=== PATIENT | female | born 1950 | race Caucasian/White ===

== ENCOUNTER 2016-07-14 15:38 | Observation (INO) | payer OTHER ==
[~2016-07-14] VITALS: Ht 170.2 cm; Wt 84.0 kg
[~2016-07-14 15:38] MED LIST: AMBIEN5 MG PO; ASA LO-DOSE81 MG OR; ASPIRIN LOW DOS81 M2 PO; ATENOLOL50 MG OR; AUGMENTIN875 MG OR; BABY ASPIRIN81 MG OR; CYANOCOBALAM1000 MC1 IM; FLEXERIL OR; FLEXERIL PO; LIPITOR10 MG PO; LORTAB 10 OR; LORTAB 5 OR; LORTAB 7.5 OR; LOSARTAN POT50 MG PO; METOPROL TAR25 MG PO; NAPROSYN500 MG PO; PLAVIX75 MG OR; PREVACID30 M1 OR; PREVACID30 M1 PO; PREVACID30 M3 PO; PREVACID30 MG OR; PRILOSEC20 MG OR; ROBAXIN-750750 MG PO; ULTRAM50 M1 PO; VITAMIN B-121000 MCG PO
--- NOTE | 2016-07-14 15:40 | NUR ---
PT TO ROOM 9 VIA WHEELCHAIR. CALL LIGHT WITHIN REACH.
--- NOTE | 2016-07-14 15:57 | NUR ---
PT TO ED 9 VIA WC. PT CARMITA. RESPR EG ET TACHEPNIC. PT REPORTS CP X 1 HOUR. JUST PRIOR TO ARRIVAL PT BEGAN TO VOMIT. SR ON MONITOR. ED COURSE OF TX DISCUSSED W/ PT, PT VERBALIZES UNDERSTANDING
[2016-07-14] MEDS ORDERED: PREVACID30 M1 PO (16:03)
[2016-07-14] MEDS ORDERED: AMLODIPINE5 MG PO (16:03)
[2016-07-14] MEDS ORDERED: K-DUR/KLOR-CON20 MEQ PO (16:04)
[2016-07-14] MEDS ORDERED: LOSARTAN POTASS50 MG PO (16:04)
[2016-07-14 16:05] LABS: HEMATOCRIT 38.9 % (37.0-47.0); HEMOGLOBIN 13.3 g/dl (12.0-16.0); IMMATURE GRANULOCYTES 0.4 % (0.0-1.0); MEAN CELL VOLUME 85.9 fL CALC (80.0-100.0); MEAN CORPUSCULAR HGB 29.4 pG CALC (26.0-32.0); MEAN CORPUSCULAR HGB CONC 34.2 g/L CALC (32.0-36.0); NEUT# 7.47 thou/uL (2.00-7.15); RED BLOOD COUNT 4.53 mill/uL (4.20-5.60); RED CELL DISTRI WIDTH 13.8 % (11.5-15.5)
[2016-07-14] MEDS ORDERED: ISOSORB MONO30 MG PO (16:05)
[2016-07-14] MEDS ORDERED: HYDROCHLOROT25 MG PO (16:05)
[2016-07-14] MEDS ORDERED: ASPIRIN81 MG PO (16:06)
[2016-07-14 16:26] LABS: ALBUMIN 4.6 g/dL (3.2-5.0); ALKALINE PHOSPHATASE 190 u/l (38-126); AMYLASE 33 u/l (30-110); ANION GAP 17 (6-22 (CALC)); BILIRUBIN, TOTAL 1.4 mg/dL (0.0-1.4); BUN 10 mg/dL (8-23); BUN/CREATININE RATIO 18 (12-20 (CALC)); CALCIUM 9.9 mg/dL (8.4-10.2); CARBON DIOXIDE 25 mmol/l (22-30); CHLORIDE 105 mmol/l (95-108); CREATININE 0.6 mg/dL (0.5-1.0); GFR > 60 ML/MIN (>=60 (CALC)); GFR FOR AFR.AMER. > 60 ML/MIN (>=60 (CALC)); GLUCOSE 103 mg/dL (82-115); LIPASE 79 u/l (23-300); SGOT/AST 26 u/l (9-36); SGPT/ALT 27 u/l (11-66); SODIUM 144 mmol/l (137-146); TOTAL PROTEIN 7.6 g/dL (6.3-8.2)
--- NOTE | 2016-07-14 16:54 | NUR ---
PT RESTING ON STRETCHER. PT CARMITA RESP REG ET UNLABORED. VS PER YVONNE SHEET. PLAN OF CARE ET WAIT TIME UPDATED , PT VERBALIZES UNDERSTANDING. PT REPORTS HER PAIN ET NAUUSEA IS REDUCED AND WILL MONITOR. CALL LIGHT W/IN ANGELITA. NO FURTHER CONCERNS AT THIS TIME
--- NOTE | 2016-07-14 18:19 | NUR ---
PT GIVEN MEAL TRAY. PT AWAITING TGRANSPORT TO MED SURG
--- NOTE | 2016-07-14 18:53 | NUR ---
PT RESTING ON STRETCHER. PT CARMITA. RESP REG ET UNLABORED. VS PER YVONNE SHEET SR ON MONITOR. AWAITING PLACEMENT ON MED SURG. PT TAKES PO DINNER TRAY W/O DIFF.
--- NOTE | 2016-07-14 19:00 | NUR ---
PT REPORT TO PETER
--- NOTE | 2016-07-14 19:23 | NUR ---
PT TGRANSPORTED TO MSD VIA STGRETCHER W/ RN. PT CARMITA. RESP REG ET UN LBORED/. VS PER YVONNE SHEET. NO FURTHER CONCERNS AT THIS TIME
[2016-07-14 19:25] VITALS: BP 160/86
--- NOTE | 2016-07-14 19:30 | NUR ---
PT RECEIVED FROM ER VIA HERIBERTOCHER ACCOMPANIED BY NURSE, AMBULATING TO STANDING SCALE THEN TO BED WITH STEADY GAIT. A/O X3, RESPIRATIONS EVEN AND UNLABORED, DENIES CHEST PAIN. TELE IN PLACE. WILL CONTINUE TO MONITOR. ORIENTED TO BED CONTROLS AND CALL LIGHT FOR ASSISTANCE.
--- NOTE | 2016-07-14 23:30 | NUR ---
PT ADMITS TO HAVING A LOOSE BM AND NOW C/O NAUSEA AND LUQ DISCOMFORT. MEDICATED WITH ZOFRAN AND MYLANTA AT [address] MARCANO.
[2016-07-15 00:04] VITALS: BP 139/58
--- NOTE | 2016-07-15 01:39 | NUR ---
RESTING WITH EYES CLOSED, RESPIRATIONS EVEN AND UNLABORED.
[2016-07-15 04:20] VITALS: BP 116/65
--- NOTE | 2016-07-15 05:00 | NUR ---
RESTING IN SEMIFOWLERS WITH EYES CLOSED, RESPIRATIONS EVEN AND UNLABORED. CALL LIGHT IN REACH.
--- NOTE | 2016-07-15 06:00 | NUR ---
MORNING BLOOD WORK DRAWN BY INSURANCE CLAIM AUDITOR.
[2016-07-15 06:14] LABS: HEMATOCRIT 37.5 % (37.0-47.0); HEMOGLOBIN 12.5 g/dl (12.0-16.0); IMMATURE GRANULOCYTES 0.2 % (0.0-1.0); MEAN CELL VOLUME 89.3 fL CALC (80.0-100.0); MEAN CORPUSCULAR HGB 29.8 pG CALC (26.0-32.0); MEAN CORPUSCULAR HGB CONC 33.3 g/L CALC (32.0-36.0); NEUT# 3.71 thou/uL (2.00-7.15); RED BLOOD COUNT 4.2 mill/uL (4.20-5.60); RED CELL DISTRI WIDTH 14.3 % (11.5-15.5)
[2016-07-15 06:29] LABS: ANION GAP 14 (6-22 (CALC)); BUN 12 mg/dL (8-23); BUN/CREATININE RATIO 18 (12-20 (CALC)); CALCIUM 9.5 mg/dL (8.4-10.2); CALCULATED LDLCHOLESTEROL 61 mg/dL (62-129 (CALC)); CARBON DIOXIDE 29 mmol/l (22-30); CHLORIDE 106 mmol/l (95-108); CREATININE 0.7 mg/dL (0.5-1.0); GFR > 60 ML/MIN (>=60 (CALC)); GFR FOR AFR.AMER. > 60 ML/MIN (>=60 (CALC)); GLUCOSE 105 mg/dL (82-115); HDL CHOLESTEROL 44 mg/dL (>=40); MAGNESIUM 2.2 mg/dL (1.6-2.3); POTASSIUM 3.5 mmol/l (3.5-5.1); SODIUM 145 mmol/l (137-146); TOTAL CHOLESTEROL 133 mg/dl (0-199); TOTAL TRIGLYCERIDES 144 mg/dl (30-149); VLDL CHOLESTROL 29 mg/dl (1-41 (CALC))
--- NOTE | 2016-07-15 07:10 | NUR ---
PT AROUSED EASILY ON ROUNDS; NO COMPLAINTS AT THIS TIME; CALL MARTINEZ WITHIN REACH; WILL CONTINUE TO MONITOR.
[2016-07-15 08:45] VITALS: BP 124/77
--- NOTE | 2016-07-15 08:45 | NUR ---
PT A/O X3; MEDICATED FOR C/O NAUSEA; PT WITH C/O LUQ PAIN 05/03, WILL NOTIFY MD; TELE MONITOR IN PLACE; CALL MARTINEZ WITHIN REACH; WILL CONTINUE TO MONITOR
--- NOTE | 2016-07-15 10:30 | NUR ---
DR. MARCANO IN TO SEE PT; PLAN OF CARE DISCUSSED
[2016-07-15 12:52] VITALS: BP 124/66
[2016-07-15 13:48] LABS: C. DIFFICILE TOXIN A&B NEGATIVE (NEGATIVE)
[2016-07-15] MEDS ORDERED: FLORASTOR250 M1 PO (14:18)
[2016-07-15] MEDS ORDERED: TRAMADOL HCL50 MG PO (14:18)
[2016-07-15] MEDS ORDERED: SUCRALFATE1 GM/10 ML PO (14:18)
[2016-07-15] MEDS ORDERED: METRONIDAZOLE500 MG PO (14:18)
[2016-07-15] MEDS ORDERED: B-12500 MC1 PO (14:21)
--- NOTE | 2016-07-15 15:37 | NUR ---
Discharge instructions given. Patient verbalizes understanding of same. Discharged in stable condition via Wheelchair to Home with *Other. All belongings sent with pt.
== END 2016-07-15 15:35 | disposition home or self-care (01) | DRG 313 ==
LOC: ENPENDDIS → ED 15:38 → ED-I 16:12 → ED 16:12 → ED-I 17:08 → ED 17:44 → MS2 17:45
PROVIDERS: Emergency Medicine; ADMIT Internal Medicine; ATTEND Internal Medicine
DX: R07.89 Other chest pain (principal); I25.10 Atherosclerotic heart disease of native coronary artery without angina pectoris; R16.0 Hepatomegaly, not elsewhere classified; I10 Essential (primary) hypertension; R10.12 Left upper quadrant pain; K21.9 Gastro-esophageal reflux disease without esophagitis; M19.90 Unspecified osteoarthritis, unspecified site; E78.5 Hyperlipidemia, unspecified; E53.8 Deficiency of other specified B group vitamins; K52.9 Noninfective gastroenteritis and colitis, unspecified; R42 Dizziness and giddiness; R06.02 Shortness of breath; Z98.84 Bariatric surgery status; Z95.5 Presence of coronary angioplasty implant and graft
CPT/HCPCS: G0378

== ENCOUNTER 2016-12-17 15:43 | Emergency (ER) | payer OTHER ==
[~2016-12-17] VITALS: Ht 170.2 cm; Wt 87.0 kg
[~2016-12-17 15:43] MED LIST changes: +AMLODIPINE5 MG PO; +ASPIRIN81 MG PO; +B-12500 MC1 PO; +FLORASTOR250 M1 PO; +HYDROCHLOROT25 MG PO; +ISOSORB MONO30 MG PO; +K-DUR/KLOR-CON20 MEQ PO; +LOSARTAN POTASS50 MG PO; +METRONIDAZOLE500 MG PO; +SUCRALFATE1 GM/10 ML PO; +TRAMADOL HCL50 MG PO
[2016-12-17] MEDS ORDERED: FLEXERIL PO (18:10)
[2016-12-17] MEDS ORDERED: NAPROSYN500 MG PO (18:10)
[2016-12-17 18:13] VITALS: BP 158/84
== END 2016-12-17 18:21 | disposition home or self-care (01) | DRG 556 ==
LOC: ED 15:43
DX: M25.551 Pain in right hip (principal); R10.2 Pelvic and perineal pain; M16.11 Unilateral primary osteoarthritis, right hip; R10.31 Right lower quadrant pain; M54.5 Low back pain; R07.9 Chest pain, unspecified; V43.62XA Car passenger injured in collision with other type car in traffic accident, initial encounter; Y92.414 Local residential or business street as the place of occurrence of the external cause

== ENCOUNTER 2018-08-14 12:10 | Observation (INO) | payer OTHER, MEDICARE ==
[~2018-08-14] VITALS: Ht 170.2 cm; Wt 77.0 kg
[2018-08-14] MEDS ORDERED: METHIMAZOLE10 MG PO (12:26)
[2018-08-14] MEDS ORDERED: NORCO1 TA1 PO (12:27)
[2018-08-14 12:54] LABS: HEMATOCRIT 39.7 % (37.0-47.0); HEMOGLOBIN 12.9 g/dl (12.0-16.0); IMMATURE GRANULOCYTES 0.4 % (0.0-5.0); MEAN CELL VOLUME 86.1 fL CALC (80.0-100.0); MEAN CORPUSCULAR HGB CONC 32.5 g/L CALC (32.0-36.0); NEUT# 4.67 thou/uL (2.00-7.15); RED BLOOD COUNT 4.61 mill/uL (4.20-5.60); RED CELL DISTRI WIDTH 15.2 % (11.5-15.5)
[2018-08-14 13:11] LABS: ALBUMIN 4.5 g/dL (3.2-5.0); ALKALINE PHOSPHATASE 199 u/l (38-126); ANION GAP 14 (6-22 (CALC)); BUN 17 mg/dL (8-23); BUN/CREATININE RATIO 22 (12-20 (CALC)); CARBON DIOXIDE 25 mmol/l (22-30); CHLORIDE 107 mmol/l (95-108); CREATININE 0.8 mg/dL (0.5-1.0); GFR > 60 ML/MIN (>=60 (CALC)); GFR FOR AFR.AMER. > 60 ML/MIN (>=60 (CALC)); POTASSIUM 3.2 mmol/l (3.5-5.1); SGOT/AST 33 u/l (9-36); SODIUM 143 mmol/l (137-146); TOTAL PROTEIN 7.6 g/dL (6.3-8.2)
[2018-08-14 13:21] LABS: MYOGLOBIN 53 ng/mL (0 - 62)
[2018-08-14 14:34] VITALS: BP 156/84
[2018-08-14 15:52] LABS: URINE BLOOD DIPSTICK NEGATIVE (NEGATIVE); URINE GLUCOSE - DIPSTICK NEGATIVE (NEGATIVE); URINE KETONE TRACE mg/dL (NEGATIVE); URINE LEUK ESTERASE NEGATIVE (NEGATIVE); URINE NITRITE - DIPSTICK NEGATIVE (Negative); URINE PROTEIN - DIPSTICK TRACE mg/dL (NEG-TRACE); URINE SPECIFIC GRAVITY >=1.030; URINE UROBILINOGEN - DIPSTICK 0.2 E.U./dL (0.2)
[2018-08-14 15:53] LABS: URINE BILIRUBIN - DIPSTICK SMALL (NEGATIVE)
[2018-08-14 15:54] LABS: URINE COLOR DK. YELLOW
[2018-08-14 16:37] LABS: TSH, 3RD GENERATION 0.78 uIU/mL (0.47 - 4.68)
[2018-08-14 19:47] VITALS: BP 114/73
[2018-08-15] VITALS (19 sets, daily range): BP systolic 105–152; BP diastolic 62–89
[2018-08-15 05:43] LABS: HEMATOCRIT 36.5 % (37.0-47.0); HEMOGLOBIN 11.6 g/dl (12.0-16.0); IMMATURE GRANULOCYTES 0.3 % (0.0-5.0); MEAN CELL VOLUME 88.4 fL CALC (80.0-100.0); MEAN CORPUSCULAR HGB 28.1 pG CALC (26.0-32.0); MEAN CORPUSCULAR HGB CONC 31.8 g/L CALC (32.0-36.0); NEUT# 3.21 thou/uL (2.00-7.15); RED BLOOD COUNT 4.13 mill/uL (4.20-5.60); RED CELL DISTRI WIDTH 15.7 % (11.5-15.5)
[2018-08-15 05:56] LABS: ALBUMIN 3.8 g/dL (3.2-5.0); ALKALINE PHOSPHATASE 166 u/l (38-126); ANION GAP 11 (6-22 (CALC)); BILIRUBIN, TOTAL 0.6 mg/dL (0.0-1.4); BUN 19 mg/dL (8-23); BUN/CREATININE RATIO 31 (12-20 (CALC)); CARBON DIOXIDE 30 mmol/l (22-30); CHLORIDE 104 mmol/l (95-108); CREATININE 0.6 mg/dL (0.5-1.0); GFR > 60 ML/MIN (>=60 (CALC)); GFR FOR AFR.AMER. > 60 ML/MIN (>=60 (CALC)); MAGNESIUM 2.1 mg/dL (1.6-2.3); POTASSIUM 3.5 mmol/l (3.5-5.1); SGOT/AST 19 u/l (9-36); SODIUM 142 mmol/l (137-146); TOTAL PROTEIN 6.5 g/dL (6.3-8.2)
[2018-08-15 10:13] LABS: CHOLESTEROL HDL RATIO 3.5 (<4.4 (CALC))
[2018-08-16] VITALS (15 sets, daily range): BP systolic 104–163; BP diastolic 55–88
[2018-08-16 04:55] LABS: HEMATOCRIT 33.6 % (37.0-47.0); HEMOGLOBIN 10.8 g/dl (12.0-16.0); IMMATURE GRANULOCYTES 0.3 % (0.0-5.0); MEAN CELL VOLUME 88.9 fL CALC (80.0-100.0); MEAN CORPUSCULAR HGB 28.6 pG CALC (26.0-32.0); MEAN CORPUSCULAR HGB CONC 32.1 g/L CALC (32.0-36.0); NEUT# 3.32 thou/uL (2.00-7.15); RED BLOOD COUNT 3.78 mill/uL (4.20-5.60); RED CELL DISTRI WIDTH 15.7 % (11.5-15.5)
[2018-08-16 04:57] LABS: ANION GAP 11 (6-22 (CALC)); BUN 16 mg/dL (8-23); BUN/CREATININE RATIO 24 (12-20 (CALC)); CARBON DIOXIDE 25 mmol/l (22-30); CHLORIDE 108 mmol/l (95-108); CREATININE 0.7 mg/dL (0.5-1.0); GFR > 60 ML/MIN (>=60 (CALC)); GFR FOR AFR.AMER. > 60 ML/MIN (>=60 (CALC)); MAGNESIUM 2.1 mg/dL (1.6-2.3); POTASSIUM 3.6 mmol/l (3.5-5.1); SODIUM 140 mmol/l (137-146)
[2018-08-17] VITALS (16 sets, daily range): BP systolic 115–185; BP diastolic 67–95
[2018-08-17 05:13] LABS: HEMATOCRIT 34.4 % (37.0-47.0); IMMATURE GRANULOCYTES 0.2 % (0.0-5.0); MEAN CELL VOLUME 88.9 fL CALC (80.0-100.0); MEAN CORPUSCULAR HGB 28.4 pG CALC (26.0-32.0); NEUT# 2.21 thou/uL (2.00-7.15); RED BLOOD COUNT 3.87 mill/uL (4.20-5.60); RED CELL DISTRI WIDTH 15.8 % (11.5-15.5)
[2018-08-17 05:18] LABS: ANION GAP 9 (6-22 (CALC)); BUN 15 mg/dL (8-23); BUN/CREATININE RATIO 25 (12-20 (CALC)); CARBON DIOXIDE 28 mmol/l (22-30); CHLORIDE 108 mmol/l (95-108); CREATININE 0.6 mg/dL (0.5-1.0); GFR > 60 ML/MIN (>=60 (CALC)); GFR FOR AFR.AMER. > 60 ML/MIN (>=60 (CALC)); POTASSIUM 3.8 mmol/l (3.5-5.1); SODIUM 141 mmol/l (137-146)
== END 2018-08-17 16:10 | disposition home or self-care (01) | DRG 310 ==
LOC: ED 12:10 → ED-I 13:37 → ED 13:42 → MS2 13:43 → ICU 13:43
PROVIDERS: Emergency Medicine; Nurse Practitioner Family; ADMIT Internal Medicine Nephrology; ATTEND Internal Medicine Nephrology
DX: I49.5 Sick sinus syndrome (principal); I16.0 Hypertensive urgency; I10 Essential (primary) hypertension; I25.119 Atherosclerotic heart disease of native coronary artery with unspecified angina pectoris; E87.6 Hypokalemia; E05.90 Thyrotoxicosis, unspecified without thyrotoxic crisis or storm; E78.5 Hyperlipidemia, unspecified; M19.90 Unspecified osteoarthritis, unspecified site; K21.9 Gastro-esophageal reflux disease without esophagitis; R51 Headache; Z95.5 Presence of coronary angioplasty implant and graft; Z98.84 Bariatric surgery status
CPT/HCPCS: G0378; J1650; J3475; Q9967

== ENCOUNTER 2019-01-14 11:07 | Observation (INO) | payer OTHER, MEDICARE ==
[~2019-01-14] VITALS: Ht 170.2 cm; Wt 76.2 kg
[~2019-01-14 11:07] MED LIST changes: +METHIMAZOLE10 MG PO; +NORCO1 TA1 PO
--- NOTE | 2019-01-14 11:37 | NUR ---
PT STATES SHE WAS AT WORK WHEN SHE STARTED FEELING DIZZY AND FELT LIKE HER HEART WAS FLUTTERING, HAD DIARRHEA AND FELT NAUSEATED. SAT DOWN FOR A LITTLE BIT AND BEGAN TO FEEL BETTER, WENT HOME AND THE MORNING WENT OUT STILL HAD THE FEELING OF HEART FLUTTERING, CHECKED HER PULSE AND IT WAS IN THE 100'S. PT HAS HAD HX OF AFIB FOR A COUPLE OF YEARS. WAS GOING TO HAVE AN ABLATION BUT IT WAS TOO EXPENSIVE.
[2019-01-14 11:58] LABS: HEMATOCRIT 39.3 % (37.0-47.0); HEMOGLOBIN 12.6 g/dl (12.0-16.0); IMMATURE GRANULOCYTES 0.3 % (0.0-5.0); MEAN CELL VOLUME 85.2 fL CALC (80.0-100.0); MEAN CORPUSCULAR HGB 27.3 pG CALC (26.0-32.0); MEAN CORPUSCULAR HGB CONC 32.1 g/L CALC (32.0-36.0); NEUT# 7.64 thou/uL (2.00-7.15); RED BLOOD COUNT 4.61 mill/uL (4.20-5.60); RED CELL DISTRI WIDTH 14.9 % (11.5-15.5)
[2019-01-14 12:17] LABS: ANION GAP 18 (6-22 (CALC)); BUN 19 mg/dL (8-23); BUN/CREATININE RATIO 22 (12-20 (CALC)); CARBON DIOXIDE 21 mmol/l (22-30); CHLORIDE 102 mmol/l (95-108); CREATININE 0.8 mg/dL (0.5-1.0); GFR > 60 ML/MIN (>=60 (CALC)); GFR FOR AFR.AMER. > 60 ML/MIN (>=60 (CALC)); POTASSIUM 4.2 mmol/l (3.5-5.1); SODIUM 137 mmol/l (137-146)
--- NOTE | 2019-01-14 12:30 | NUR ---
PT STATES FEELS BETTER, RESTING QUIETLY WATCHING TV. VSS.
[2019-01-14] MEDS ORDERED: NORVASC PO ×2 (13:26→13:28)
[2019-01-14] MEDS ORDERED: FLEXERIL5 M1 PO (13:27)
[2019-01-14] MEDS ORDERED: LOPRESSOR 550 MG/TAB PO (13:27)
--- NOTE | 2019-01-14 13:33 | NUR ---
PT RESTING QUIETLY ON STRETCHER, ADVISED OF ADMISSION STATUS, AND PT VOICES UNDERSTANDING
--- NOTE | 2019-01-14 14:30 | NUR ---
TRIED CALLING REPORT TO MED SURG FOR CONTINUATION OF CARE. NURSE UNAVAILABLE AT THIS TIME
--- NOTE | 2019-01-14 14:50 | NUR ---
1450 PT PT REPORT GIVEN AND TAKEN TO FLOOR PER W/C AND TELEMENTRY
[2019-01-14 15:23] VITALS: BP 159/95
--- NOTE | 2019-01-14 15:57 | NUR ---
PT HAD COME FROM ER VIA WHEELCHAIR. PT AMBULATED TO SCALE AND THEN TO BED. ASSESSMENT DONE. TELE IN PLACE. PT IS A&O X3. PT DENIES PAIN IN CHEST AND STATED IT IS JUST PRESSURE. PT DENIES PAIN MEDICATION AT THIS TIME. RESPS EVEN AND UNLABORED. SAFETY PRECAUTIONS REINFORCED AND CALL LIGHT IN REACH.
[2019-01-14 18:58] VITALS: BP 146/89
--- NOTE | 2019-01-14 19:00 | NUR ---
REPORT FROM LEXY ROBB. PT NOTED RESTING IN BED WATCHING TV. NO APPARENT DISTRESS NOTED. IV SITE APPEARS HEALTHY. BILL DISTRIBUTOR IN PLACE. PT C/O MILD CHEST PRESSURE UNCHANGED FROM ADMISSION. OFFERED PRN APAP AT THIS TIME PT REFUSED. DISCUSSED POC. PT VERBALIZED UNDERSTANDING. CALL LIGHT WITHIN REACH. WILL CONTINUE TO MONITOR.
--- NOTE | 2019-01-14 21:13 | NUR ---
CADDY PACKER PHYSICIAN NOTFIED OF CRITICAL TROP. ORDERS RECEIVED TO OBTAIN STAT EKG AT THIS TIME. PT CONTINUED TO REPORT CP AT THIS TIME. WILL NOTIFY PHYSICIAN WITH EKG RESULTS FOR POSSIBLE TRANSFER IF CHANGES NOTED.
--- NOTE | 2019-01-14 21:35 | NUR ---
EKG RESULTS CALLED TO PLANT SAFETY ENGINEER PHYSICIAN. PHYSICIAN GAVE NEW ORDERS FOR REPEAT EKG IN MORNING OR IF CP WORSENS, SUBLINGUAL NITRO, AND TO NOTIFY WITH NEXT TROP AT MIDNIGHT. MADE PT AWARE OF NEW ORDERS. WILL CONTINUE TO MONITOR.
--- NOTE | 2019-01-14 23:01 | NUR ---
BACKPACKERS MANAGER RECEIEVED PHONE CALL FROM IN REGARDS TO ELEVATED TROPS. NEW ORDERS RECEIVED AT THIS TIME.
[2019-01-14 23:27] VITALS: BP 140/85
[2019-01-14 23:37] VITALS: BP 140/85
--- NOTE | 2019-01-14 23:45 | NUR ---
CRITICAL TROP CALLED TO DR. MARCANO PER HIS REQUEST. INSTRUCTED TO CALL PRIMARY OPERATOR PHYSICIAN WITH RECOMMENDATIONS TO TRANSFER PT OUT.
--- NOTE | 2019-01-14 23:59 | NUR ---
RETAIL BUSINESS ANALYST PHYSICIAN NOTIFIED WITH RECOMMENDATION FROM DR. MARCANO. ORDERS RECEIEVED TO TRANSFER PT TO [facility]. SLATE ROOFER NOTIFIED AT THIS TIME.
--- NOTE | 2019-01-15 01:22 | NUR ---
PT TRANSPORTED VIA [facility] IN STABLE CONDITION. REPORT CALLED TO DMITRY AT [facility].
== END 2019-01-15 01:18 | DRG 313 ==
LOC: ED 11:07 → ED-I 12:57 → ED 12:57 → ED-I 12:57 → ED 12:58 → MS2 12:59
PROVIDERS: Family Medicine; ADMIT Internal Medicine; ATTEND Internal Medicine
DX: R07.9 Chest pain, unspecified (principal); R79.89 Other specified abnormal findings of blood chemistry; I10 Essential (primary) hypertension; E03.9 Hypothyroidism, unspecified; M19.90 Unspecified osteoarthritis, unspecified site; Z98.84 Bariatric surgery status
CPT/HCPCS: G0378; J1650

== ENCOUNTER 2019-10-21 14:11 | Emergency (ER) | payer OTHER, MEDICARE ==
[~2019-10-21] VITALS: Ht 170.2 cm; Wt 72.7 kg
[~2019-10-21 14:11] MED LIST changes: +FLEXERIL5 M1 PO; +LOPRESSOR 550 MG/TAB PO; +NORVASC PO
[2019-10-21] MEDS ORDERED: CEPHALEXIN500 M1 PO (15:05)
[2019-10-21 15:17] VITALS: BP 149/68
== END 2019-10-21 15:30 | disposition home or self-care (01) | DRG 603 ==
LOC: ED 14:11
DX: L03.116 Cellulitis of left lower limb (principal); I10 Essential (primary) hypertension; I48.91 Unspecified atrial fibrillation; E05.90 Thyrotoxicosis, unspecified without thyrotoxic crisis or storm; Z96.641 Presence of right artificial hip joint

== ENCOUNTER 2023-03-19 11:24 | Emergency (ER) | payer OTHER, BC, MEDICARE ==
[~2023-03-19] VITALS: Ht 170.2 cm; Wt 84.2 kg
[~2023-03-19 11:24] MED LIST changes: +CEPHALEXIN500 M1 PO
[2023-03-19] MEDS ORDERED: SOTALOL HCL80 MG PO (11:52)
[2023-03-19 15:54] VITALS: BP 160/100
== END 2023-03-19 15:56 | DRG 536 ==
LOC: ED 11:24
DX: S72.145A Nondisplaced intertrochanteric fracture of left femur, initial encounter for closed fracture (principal); I10 Essential (primary) hypertension; I48.91 Unspecified atrial fibrillation; W01.0XXA Fall on same level from slipping, tripping and stumbling without subsequent striking against object, initial encounter; Y92.89 Other specified places as the place of occurrence of the external cause; Y99.0 Civilian activity done for income or pay; Z96.652 Presence of left artificial knee joint; Z96.641 Presence of right artificial hip joint; Z98.84 Bariatric surgery status